=== PATIENT | male | born 1990 | race Caucasian/White ===

== ENCOUNTER 2020-12-19 21:45 | Emergency (ER) | payer BC, OTHER ==
[2020-12-19 21:58] VITALS: BP 151/94; PULSE 86; RESP 18; TEMP 98
[2020-12-19] MEDS ORDERED: ETODOLAC 400 MG TAB PO STA (23:19)
[2020-12-19] MEDS ORDERED: dexAMETHasone 4 MG TAB PO STA (23:19)
[2020-12-19] MEDS ORDERED: ACETAMINOPHEN TAB 500 MG TAB PO STA (23:19)
--- NOTE | 2020-12-19 23:20 | ED ---
Neck Injury/Pain HPI - General Chief Complaint: Neck Pain/Injury Stated Complaint: Neck Pain Time Seen by Provider: 12/19/20 22:28 Source: RN notes reviewed, old records reviewed Mode of arrival: ambulatory Limitations: no limitations - History of Present Illness Initial Comments: This is a 28-year-old male to the ER for evaluation patient presents today for evaluation regards to neck pain. Patient has decreased range of motion of neck no now for a few days now with no improvement. Patient's OB at this time will be better. No triadic injury noted. No fevers noted. No travel history or sick contacts. Patient has never prior similar symptoms but no otherwise no sore throat as well no chest pain or shortness of breath MD Complaint: neck pain -: days(s) (4) Place: home Radiation: right lateral, left lateral, upper back Severity: moderate Severity scale (1-10): 5 Quality: burning, aching Consistency: constant Improves With: none Worsens With: none Context: unknown Associated Symptoms: none Treatments Prior to Arrival: none - Related Data Previous Rx's Medication Instructions Recorded Ibuprofen [Motrin] 800 mg PO Q8HR PRN #30 tab 10/31/15 Allergies Allergy/AdvReac Type Severity Reaction Status Date / Time No Known Allergies Allergy Verified 12/19/20 21:57 Review of Systems ROS Statement: Those systems with pertinent positive or pertinent negative responses have been documented in the HPI. ROS Other: All systems not noted in ROS Statement are negative. Past Medical History Past Medical History: No Reported History History of Any Multi-Drug Resistant Organisms: None Reported Past Surgical History: No Surgical Hx Reported Additional Past Surgical History / Comment(s): broken arm repair, Past Psychological History: No Psychological Hx Reported Smoking Status: Never smoker Past Alcohol Use History: Occasional Past Drug Use History: None Reported General Exam Limitations: no limitations General appearance: alert, in no apparent distress Head exam: Present: atraumatic, normocephalic, normal inspection Eye exam: Present: normal appearance, PERRL, EOMI. Absent: scleral icterus, conjunctival injection, periorbital swelling ENT exam: Present: normal exam, mucous membranes moist Neck exam: Present: normal inspection. Absent: tenderness, meningismus, full ROM (Decreased range of motion directional left right and up), lymphadenopathy Respiratory exam: Present: normal lung sounds bilaterally. Absent: respiratory distress, wheezes, rales, rhonchi, stridor Cardiovascular Exam: Present: regular rate, normal rhythm, normal heart sounds. Absent: systolic murmur, diastolic murmur, rubs, gallop, clicks GI/Abdominal exam: Present: soft, normal bowel sounds. Absent: distended, tenderness, guarding, rebound, rigid Extremities exam: Present: normal inspection, full ROM, normal capillary refill. Absent: tenderness, pedal edema, joint swelling, calf tenderness Back exam: Present: normal inspection Neurological exam: Present: alert, oriented X3, CN II-XII intact Psychiatric exam: Present: normal affect, normal mood Skin exam: Present: warm, dry, intact, normal color. Absent: rash Course Vital Signs 12/19/20 21:54 Temperature 98.0 F Pulse Rate 86 Respiratory 18 Rate Blood Pressure 151/94 O2 Sat by Pulse 97 Oximetry - Reevaluation(s) Reevaluation #1: Medical record is reviewed Patient symptoms are improved and resolved here in the ER Patient informed of results, questions answered Patient feels good for discharge home Medical Decision Making - Medical Decision Making 30 male DF for evaluation recent history of neck injury and strain. X-ray of neck is negative for acute disease. Patient can be discharged - Radiology Data Radiology results: report reviewed (X-ray cervical spine and soft tissue neck is negative for acute disease), image reviewed Disposition Clinical Impression: Strain of neck muscle, Cervical radiculopathy Disposition: HOME SELF-CARE Condition: Good Instructions (If sedation given, give patient instructions): Cervical Strain (ED), Cervical Sprain (ED) Is patient prescribed a controlled substance at d/c from ED?: No Referrals: Morteza Maddox MD [Primary Care Provider] - 1-2 days
[2020-12-19] MEDS: CYCLOBENZAPRINE 10 MG TAB PO STA (23:55)
--- NOTE | 2020-12-20 00:04 | XR ---
EXAMINATION TYPE: XR soft tissue neck DATE OF EXAM: 12/19/2020 COMPARISON: NONE HISTORY: Neck pain TECHNIQUE: 2 views FINDINGS: Epiglottis is normal. Subglottic trachea appears normal. Tonsils and adenoids appear normal . Cervical vertebra have normal spacing and alignment. IMPRESSION: Negative cervical soft tissue exam.
--- NOTE | 2020-12-20 00:05 | XR ---
EXAMINATION TYPE: XR cervical spine limited DATE OF EXAM: 12/19/2020 COMPARISON: NONE HISTORY: Neck pain TECHNIQUE: 2 views FINDINGS: Cervical vertebra have normal spacing and alignment. Posterior elements are intact. [place] axial facet joint is normal. There are no cervical ribs. Prevertebral soft tissues appear normal. IMPRESSION: Negative cervical spine exam.
== END 2020-12-20 00:21 | disposition home or self-care (01) ==
LOC: EC 21:45
DX: S16.1XXA Strain of muscle, fascia and tendon at neck level, initial encounter (principal); M54.12 Radiculopathy, cervical region; X58.XXXA Exposure to other specified factors, initial encounter
CPT/HCPCS: 70360; 72040; 99283; J8540